=== PATIENT | male | born 1970 | race Caucasian/White ===

== ENCOUNTER 2018-10-17 17:08 | Emergency (ER) | payer MEDICAID ==
[~2018-10-17] VITALS: Ht 175.3 cm; Wt 89.4 kg
[2018-10-17 17:12] VITALS: Ht 175.3 cm; Wt 89.4 kg
[2018-10-17] MEDS ORDERED: KETOROLAC 30 MG INJ IM STA (18:01)
[2018-10-17] MEDS ORDERED: TYL500 PO (19:36)
[2018-10-17] MEDS ORDERED: IBUP-1542 PO (19:36)
[2018-10-17 19:44] VITALS: BP 148/82; PULSE 76; RESP 18
--- NOTE | 2018-10-18 03:21 | ERD ---
ER Documentation Chief Complaint Chief Complaint left hand pain. sent from clinic for fx of the left hand ROS All systems reviewed and are negative except as per history of present illness. Medications Home Meds Active Scripts Acetaminophen* (Tylenol*) 500 Mg Tab, 500 MG PO Q4H PRN for MILD PAIN LEVEL 1-3, #30 TAB Prov:NED HERRON DO 10/17/18 Ibuprofen* (Motrin*) 600 Mg Tab, 600 MG PO Q6H PRN for PAIN AND OR ELEVATED TEMP, #30 TAB Prov:NED HERRON DO 10/17/18 Allergies Allergies: Coded Allergies: No Known Allergy (Unverified , 10/17/18) PMhx/Soc Hx Alcohol Use: No Hx Substance Use: No Hx Tobacco Use: No Smoking Status: Never smoker Physical Exam Vitals Vital Signs Date Temp Pulse Resp B/P (MAP) Pulse Ox O2 O2 Flow FiO2 Time Delivery Rate 10/17/18 98.8 76 18 148/82 98 Room Air 19:44 (104) 10/17/18 99.8 100 18 157/89 98 17:12 (111) Physical Exam Const: No acute distress Head: Atraumatic Eyes: Normal Conjunctiva ENT: Normal External Ears, Nose and Mouth. Neck: Full range of motion. No meningismus. Resp: Clear to auscultation bilaterally Cardio: Regular rate and rhythm, no murmurs Abd: Soft, non tender, non distended. Normal bowel sounds Skin: No petechiae or rashes Back: No midline or flank tenderness Ext: No cyanosis, or edema Neur: Awake and alert Psych: Normal Mood and Affect Results 24 hrs Current Medications Medications Dose Sig/[place] Start Time Status Last (Trade) Ordered Route PRN Stop Time Admin Dose Reason Admin Ketorolac 30 mg ONCE STAT 10/17/18 DC 10/17/18 Tromethamine IM 18:01 10/17/18 18:07 (Toradol) 18:02 Departure Diagnosis: Primary Impression: Metacarpal bone fracture Condition: Fair Patient Instructions: Fracture, Finger (Closed) Referrals: [facility] YOU HAVE RECEIVED A MEDICAL SCREENING EXAM AND THE RESULTS INDICATE THAT YOU DO NOT HAVE A CONDITION THAT REQUIRES URGENT TREATMENT IN THE EMERGENCY DEPARTMENT. FURTHER EVALUATION AND TREATMENT OF YOUR CONDITION CAN WAIT UNTIL YOU ARE SEEN IN YOUR DOCTORS OFFICE WITHIN THE NEXT 1-2 DAYS. IT IS YOUR RESPONSIBILITY TO MAKE AN APPOINTMENT FOR FOLOW-UP CARE. IF YOU HAVE A PRIMARY DOCTOR --you should call your primary doctor and schedule an appointment IF YOU DO NOT HAVE A PRIMARY DOCTOR YOU CAN CALL OUR PHYSICIAN REFERRAL HOTLINE AT IF YOU CAN NOT AFFORD TO SEE A PHYSICIAN YOU CAN CHOSE FROM THE FOLLOWING [facility] [address] [facility] [address] [facility] [facility] [address] [facility] [address] [facility] [facility] [address] [facility] [facility]. [address] [facility]. [facility] Urgent Care 7 a.m.- 11 p.m. Every Day of the Week NO APPOINTMENT OR AUTHORIZATION NEEDED Additional Instructions: Llame al doctor MAANA y rohit santiago MENDOZA PARA DENTRO DE 1-2 LEO.Dgale a la secretaria que nosotros le instruimos hacer esta mendoza.Avise o llame si jennings condicin se empeora antes de la mendoza. Regresa aqui si peor o no mejor. Follow up with orthopedic surgery NED HERRON DO Oct 18, 2018 03:21
== END 2018-10-17 19:45 | disposition home or self-care (01) ==
LOC: FTE 17:08
DX: S62.309A Unspecified fracture of unspecified metacarpal bone, initial encounter for closed fracture (principal); X58.XXXA Exposure to other specified factors, initial encounter; Y92.9 Unspecified place or not applicable
CPT/HCPCS: 29125; 96372; J1885; Z7502

== ENCOUNTER → 2019-04-25 | Emergency (ER) | payer MEDICAID, OTHER ==
[~2019-04-25] VITALS: Ht 157.5 cm; Wt 89.0 kg
[~2019-04-25] MED LIST: IBUP-1542 PO; IBUPROFEN 600 MG TAB PO ONE; TRAM50TA2 PO; TYL500 PO
[2019-04-25 17:40] VITALS: BP 129/70; PULSE 77; RESP 18; Ht 157.5 cm; Wt 89.0 kg
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
== END | disposition home or self-care (01) ==
LOC: FTE 17:33
DX: S39.012A Strain of muscle, fascia and tendon of lower back, initial encounter (principal); S19.9XXA Unspecified injury of neck, initial encounter; R07.9 Chest pain, unspecified; V49.49XA Driver injured in collision with other motor vehicles in traffic accident, initial encounter
CPT/HCPCS: 71045; 72040; 72100; 93005